=== PATIENT | female | born 1990 | race Two or more races ===

== ENCOUNTER 2020-07-31 16:02 | Emergency (ER) | payer SELFPAY ==
[~2020-07-31] VITALS: Ht 157.5 cm; Wt 90.7 kg
[2020-07-31] MEDS ORDERED: AZIT250T13 PO (17:00)
--- NOTE | 2020-07-31 17:41 | NUR ---
Patient discharged to home in stable condition. Written and verbal after care instructions given. Patient verbalizes understanding of instructions. Stressed follow up or return to ER for worsening s/s.
== END 2020-07-31 17:43 | disposition home or self-care (01) ==
LOC: ER 16:02
DX: U07.1 COVID-19 (principal); M79.18 Myalgia, other site
CPT/HCPCS: 71046; A4663